=== PATIENT | female | born 1975 | race Caucasian/White ===

== ENCOUNTER 2023-11-27 10:26 | Emergency (ER) | payer SELFPAY ==
[2023-11-27 10:37] VITALS: BP 121/80; PULSE 61; RESP 18; TEMP 98.6; BMI 23.0
[2023-11-27] MEDS ORDERED: IBUPROFEN 600 MG TABLET (FP) PO ONE (11:28)
[2023-11-27] MEDS: IBUPROFEN 600 MG TABLET (FP) PO ONE (11:33)
== END 2023-11-27 12:38 | disposition home or self-care (01) ==
LOC: JERFT 10:26
DX: S93.402A Sprain of unspecified ligament of left ankle, initial encounter (principal); W01.0XXA Fall on same level from slipping, tripping and stumbling without subsequent striking against object, initial encounter; Y92.009 Unspecified place in unspecified non-institutional (private) residence as the place of occurrence of the external cause
CPT/HCPCS: 73610-TC-LT-FY; 99283-25